=== PATIENT | female | born 1950 | race Caucasian/White ===

== ENCOUNTER 2018-01-20 09:27 | Emergency (ER) | payer MEDICARE, MEDICAID ==
[~2018-01-20] VITALS: Ht 152.4 cm; Wt 96.0 kg
[~2018-01-20 09:27] MED LIST: HYDR-569 PO
[2018-01-20 09:35] VITALS: BP 179/86
[2018-01-20] MEDS ORDERED: LIDOcaine 1.5% w/epinephrine 1:200,000 5ml ampul IJ ONE (09:55)
== END 2018-01-20 11:09 | disposition home or self-care (01) ==
LOC: ER 09:27
DX: S22.32XA Fracture of one rib, left side, initial encounter for closed fracture (principal); S60.222A Contusion of left hand, initial encounter; S00.83XA Contusion of other part of head, initial encounter; S00.212A Abrasion of left eyelid and periocular area, initial encounter; I10 Essential (primary) hypertension; Z98.890 Other specified postprocedural states; Z79.899 Other long term (current) drug therapy; W10.9XXA Fall (on) (from) unspecified stairs and steps, initial encounter; Y93.89 Activity, other specified; Y92.89 Other specified places as the place of occurrence of the external cause; Y99.8 Other external cause status
CPT/HCPCS: 71045; 73110; 73130; 99284

== ENCOUNTER 2018-10-23 08:16 | Emergency (ER) | payer MEDICARE, MEDICAID ==
[~2018-10-23] VITALS: Ht 166.4 cm; Wt 95.5 kg
[~2018-10-23 08:16] MED LIST changes: +HYDR-4383 PO; -HYDR-569 PO
[2018-10-23] MEDS ORDERED: AMOX500C2 PO (08:37)
[2018-10-23 08:48] VITALS: BP 181/72
== END 2018-10-23 08:50 | disposition home or self-care (01) ==
LOC: ER 08:16
DX: H66.92 Otitis media, unspecified, left ear (principal); I10 Essential (primary) hypertension
CPT/HCPCS: 99283

== ENCOUNTER 2019-03-19 10:54 | Emergency (ER) | payer MEDICARE, MEDICAID ==
[~2019-03-19] VITALS: Ht 165.1 cm; Wt 78.5 kg
--- NOTE | 2019-03-19 11:27 | NUR ---
PT PLACED IN FASTRACK LOBBY BY SPRING TOW MATE, HAVING VS RE-CHECKED, CALLED GEOVANNY FOR POTENTIAL NEED TO MOVE THE PATIENT TO MAIN ED
[2019-03-19 11:30] VITALS: BP 174/77
--- NOTE | 2019-03-19 11:30 | NUR ---
PT VS UPDATED BY SPRING BASS STRING WINDER, PALPATED PT NECK AND BACK PT DENIES ANY C-SPINE TENDERNESS, PT REPORTS MUSCULE PAIN TO UPPER BACK AND NECK, PT HAS ICE PACK PLACED TO NECK/UPPER BACK
[2019-03-19] MEDS ORDERED: CYCL-1 PO (12:27)
[2019-03-19] MEDS ORDERED: IBUP-1984 PO (12:27)
== END 2019-03-19 12:39 | disposition home or self-care (01) ==
LOC: ER 10:54
DX: S13.4XXA Sprain of ligaments of cervical spine, initial encounter (principal); I10 Essential (primary) hypertension; E07.9 Disorder of thyroid, unspecified; Z98.890 Other specified postprocedural states; Z79.899 Other long term (current) drug therapy; X58.XXXA Exposure to other specified factors, initial encounter; Y93.89 Activity, other specified; Y92.89 Other specified places as the place of occurrence of the external cause; Y99.8 Other external cause status
CPT/HCPCS: 99284

== ENCOUNTER 2021-11-08 22:46 | Observation (INO) | payer MEDICARE, MEDICAID ==
[~2021-11-08] VITALS: Ht 165.1 cm; Wt 95.5 kg
[~2021-11-08 22:46] MED LIST changes: +CYCL-1 PO
[2021-11-08 23:25] LABS: BASOPHILS % (AUTO) 0.6 % (0-1); EOSINOPHILS # (AUTO) 0.1 X10'3 (0-0.9); EOSINOPHILS % (AUTO) 1.3 % (0-6); HEMATOCRIT 40.7 % (35.0-45.0); HEMOGLOBIN 13.5 g/dl (12.0-16.0); LYMPHOCYTES # (AUTO) 2.8 X10'3 (1.1-4.8); LYMPHOCYTES % (AUTO) 37.6 % (21-51); MEAN CORPUSCULAR HEMOGLOBIN 29.7 PG (27.0-31.0); MEAN CORPUSCULAR HGB CONC 33.1 g/dL (33.0-36.5); MEAN CORPUSCULAR VOLUME 89.8 FL (78-98); MONOCYTES # (AUTO) 0.8 X10'3 (0-0.9); MONOCYTES % (AUTO) 11.1 % (2-12); NEUTROPHILS # (AUTO) 3.7 X10'3 (1.8-7.7); NEUTROPHILS % (AUTO) 49.4 % (42-75); PLATELET COUNT 243 X10'3 (140-440); RED BLOOD COUNT 4.53 X10'6 (4.20-5.60); RED CELL DISTRIBUTION WIDTH 14.4 % (11.5-14.5); WHITE BLOOD COUNT 7.5 X10'3 (4.5-11.0)
[2021-11-08 23:37] LABS: ALANINE AMINOTRANSFERASE 44 U/L (12-78); ALBUMIN 3.6 G/DL (3.4-5.0); ALBUMIN/GLOBULIN RATIO 0.8 (1.1-1.5); ALKALINE PHOSPHATASE 41 IU/L (46-116); ANION GAP 12 (8-16); ASPARTATE AMINO TRANSFERASE 35 U/L (10-37); BILIRUBIN,TOTAL 0.4 MG/DL (0.1-1.0); BLOOD UREA NITROGEN 11 MG/DL (7-18); BUN/CREATININE RATIO 10.6 (6.6-38.0); CALCIUM 9.1 MG/DL (8.5-10.1); CHLORIDE 104 MMOL/L (99-107); CREATININE 1.04 MG/DL (0.40-0.90); GLUCOSE 118 MG/DL (70-104); POTASSIUM 3.4 MMOL/L (3.5-5.1); SODIUM 140 MMOL/L (135-145); TOTAL CARBON DIOXIDE 24.2 MMOL/L (24-32); eGFR 52 ML/MIN
[2021-11-09] MEDS ORDERED: aspirin 325mg tablet PO ONE (02:40)
[2021-11-09] MEDS ORDERED: mag hydrox/Alum hydrox/simeth 30ml oral suspension PO PRN (07:10)
[2021-11-09] MEDS ORDERED: nitroGLYCERIN 0.4mg SUBLingual tab SL PRN ×2 (07:10)
[2021-11-09] MEDS ORDERED: acetaminophen 325mg tablet PO PRN ×2 (07:10)
[2021-11-09] MEDS ORDERED: ondansetron 4mg rapidly disintigrating tab PO PRN (07:10)
[2021-11-09] MEDS ORDERED: PERFLUTREN PROTEIN-A MICROSPHR (Optison) 0.22 MG/ML 3ML VIAL IV ONE (07:10)
[2021-11-09] MEDS ORDERED: ondansetron/PF 4mg/2ml inj IV PRN (07:10)
[2021-11-09] MEDS ORDERED: magnesium 2GM in 50ml NS 50 ML IV PRN (07:10)
[2021-11-09] MEDS ORDERED: potassium Cl 20 mEq SR tablet PO PRN ×2 (07:10)
[2021-11-09] MEDS ORDERED: HYDROcodone/acetaminophen 5mg/325mg tablet PO PRN (07:10)
[2021-11-09] MEDS ORDERED: HYDROcodone/acetaminophen 10/325mg tab PO PRN (07:10)
[2021-11-09] MEDS ORDERED: normal saline 1000ml 1,000 ML IV SCH (07:10)
[2021-11-09] MEDS ORDERED: magnesium Cl slow-release 64mg tablet PO PRN (07:10)
[2021-11-09] MEDS ORDERED: regadenoson 0.4mg/5ml syringe IV PRN (07:10)
[2021-11-09] MEDS ORDERED: metoclopramide 5 mg/ml inj IV PRN (07:10)
[2021-11-09] MEDS ORDERED: metoprolol tartrate 1mg/ml inj IV PRN (07:10)
[2021-11-09] MEDS ORDERED: potassium CL 10mEq/100ml bag 100 ML IV PRN (07:10)
[2021-11-09] MEDS ORDERED: magnesium 4gm in 100ml NS 100 ML IV PRN (07:10)
[2021-11-09] MEDS ORDERED: magnesium hydroxide 30ml (MOM) UD suspension PO PRN (07:10)
[2021-11-09] MEDS ORDERED: morphine 2 MG/ML inj. syringe IV PRN ×2 (07:10)
[2021-11-09] MEDS ORDERED: aminophylline 500mg/20ml vial IV PRN (07:10)
[2021-11-09] MEDS ORDERED: docusate sod 100mg capsule PO SCH (08:00)
[2021-11-09] MEDS ORDERED: aspirin 81mg, enteric-coated 1 TAB TABLET.DR PO SCH (08:00)
[2021-11-09] MEDS ORDERED: K and/or MAG REPLACEMENT MC SCH (08:00)
[2021-11-09 08:40] LABS: CHOL/HDL RATIO 2.6 (0.00-4.99); CHOLESTEROL 171 MG/DL (0-200); HDL CHOLESTEROL 67 MG/DL (35-60); LDL CHOLESTEROL 91 MG/DL (50-100); MAGNESIUM 2.1 MG/DL (1.5-2.4); TRIGLYCERIDES 88 MG/DL (20-135)
--- NOTE | 2021-11-09 08:46 | NUR ---
Patient transfers to bedside commode without assistance; gait steady.
[2021-11-09 08:53] LABS: HEMOGLOBIN A1C 5.8 % (4.5-6.2)
[2021-11-09] MEDS ORDERED: NO HOME MEDS (09:01)
[2021-11-09 10:25] VITALS: BP 184/84
[2021-11-09 10:49] VITALS: BP 180/87
[2021-11-09 10:50] VITALS: BP 206/87
[2021-11-09 10:51] VITALS: BP 170/81
[2021-11-09 10:52] VITALS: BP 167/80
[2021-11-09 10:53] VITALS: BP 184/86
--- NOTE | 2021-11-09 12:29 | NUR ---
Page Sent PAGER ID: [phone] MESSAGE: Pt Marcelina Acosta RM [id number] is back from Stress test. Can she be put on Heart Healthy Diet? Sintia [phone]
[2021-11-09] MEDS ORDERED: LEVO-144 PO (13:48)
[2021-11-09] MEDS ORDERED: SIMV-42 PO (13:48)
[2021-11-09] MEDS ORDERED: LATA2.5D14 EACHEYE (13:48)
[2021-11-09] MEDS ORDERED: BENA40TA90 PO (13:48)
[2021-11-09] MEDS ORDERED: TIMO5DRO32 EACHEYE (13:48)
[2021-11-09] MEDS ORDERED: ATEN-236 PO (13:48)
[2021-11-09] MEDS ORDERED: ASPI-1071 PO (14:35)
[2021-11-09] MEDS ORDERED: ATEN50TA PO ×2 (14:35)
[2021-11-09] MEDS ORDERED: CETI-90 PO (14:35)
[2021-11-09] MEDS ORDERED: ATEN-54 PO (15:15)
[2021-11-09] MEDS ORDERED: AMLO10TA4 PO (15:15)
--- NOTE | 2021-11-09 16:49 | NUR ---
per MD orders pt dc. tele and IV removed and pt left with all belongings. Pt left via wheelchair to home with . Pt educated on new medications and discharge instructions. All questions answered
[2021-11-09] MEDS ORDERED: temazepam 15mg capsule PO PRN (21:00)
== END 2021-11-09 16:18 | disposition home or self-care (01) ==
LOC: ER 22:46 → ED HOLD 11-09 07:23 → PCU 3S 11-09 09:41
PROVIDERS: ADMIT Family Medicine; ATTEND Family Medicine
DX: R07.89 Other chest pain (principal); E87.6 Hypokalemia; I12.9 Hypertensive chronic kidney disease with stage 1 through stage 4 chronic kidney disease, or unspecified chronic kidney disease; N18.30 Chronic kidney disease, stage 3 unspecified; I20.9 Angina pectoris, unspecified; E03.9 Hypothyroidism, unspecified; J30.9 Allergic rhinitis, unspecified; E78.00 Pure hypercholesterolemia, unspecified; E66.9 Obesity, unspecified; E78.5 Hyperlipidemia, unspecified; H40.9 Unspecified glaucoma; Z79.899 Other long term (current) drug therapy; Z98.890 Other specified postprocedural states
CPT/HCPCS: 36415; 71045; 78452; 80053; 80061; 83036; 83735; 83880; 84132; 84484; 85025; 87081; 93005; 93017; 93306; 96360; 96361; 99285; A9500; G0378; J2785; J7030